=== PATIENT | female | born 1960 | race Caucasian/White ===

== ENCOUNTER → 2018-08-01 | Outpatient (CLI) | payer MEDICARE ==
--- NOTE | 2018-08-01 14:14 | Diagnostic Imaging Report ---
PROCEDURE: CT chest without contrast. TECHNIQUE: Multiple contiguous axial images were obtained through the chest without the use of intravenous contrast. Auto Exposure Controls were utilized during the CT exam to meet ALARA standards for radiation dose reduction. INDICATION: Shortness of breath. COMPARISON: None available. FINDINGS: Absence of intravenous contrast decreases sensitivity for detection of lymphadenopathy and vascular pathology. Multiple images are degraded by patient motion which diminishes detail, and interpretation was made in light of this technical confine. TRACHEA AND MAIN BRONCHI: Patent without evidence of tracheal or endobronchial lesion. LUNGS AND PLEURA: Moderate upper lobe centrilobular emphysematous change is demonstrated in both lungs. There is mild biapical pleural-parenchymal scarring. There is a 2 mm nodule in the right upper lobe posteriorly (image 40, series 3). A 4 mm pulmonary nodule is demonstrated in the anterolateral aspect of the right upper lobe (image 47, series 3). There is a 3 mm pulmonary nodule in the anterior aspect of the right lower lobe adjacent to the major fissure (image 63, series 3). There is a 3 mm nodule in the anterior aspect of the left lower lobe adjacent to the major fissure (image 65, series 3). The lungs are otherwise clear, without focal consolidation or pulmonary mass. No pleural effusion or pneumothorax. MEDIASTINUM AND CYNTHIA: Visualized thyroid gland is normal. No mediastinal or hilar lymphadenopathy. Esophagus is nondistended. HEART AND VESSELS: Heart is normal in size. Trace pericardial fluid without eduardo effusion. Atherosclerotic calcification involves the aorta and its branches, including the coronary arteries. Thoracic aorta is nonaneurysmal. DIAPHRAGM AND UPPER ABDOMEN: Calcified granuloma is demonstrated in the right hepatic dome. Visualized upper abdomen and diaphragm are otherwise unremarkable. CHEST WALL: Unremarkable. BONES: No acute osseous abnormality allowing for patient motion. Degenerative changes are noted in the spine. Partially visualized anterior cervical fusion hardware is demonstrated. Partially imaged somewhat serpiginous sclerosis in the right humeral head may reflect bone infarct versus degenerative change. IMPRESSION: Marked upper lobe predominant emphysematous changes are demonstrated in both lungs. No acute chest disease is appreciated. Multiple bilateral pulmonary nodules measuring up to 4 mm. Given emphysematous changes of the lungs, the patient is considered to be at increased risk for malignancy, therefore, optional CT may be performed in 12 months to demonstrate stability of these nodules. Recommendations are per Fleischner Society 2017 guidelines for a followup of incidental pulmonary nodules (Radiology, 2017 Sher;284(1):228-243). Dictated by: Dictated on workstation # [id number]
== END ==
LOC: RAD FS 13:15
PROVIDERS: ATTEND Nurse Practitioner
DX: J43.2 Centrilobular emphysema (principal); R91.8 Other nonspecific abnormal finding of lung field
CPT/HCPCS: 71250

== ENCOUNTER 2018-08-15 04:18 | Emergency (ER) | payer MEDICARE ==
[~2018-08-15] VITALS: Ht 160 cm; Wt 72.6 kg
--- OUTSIDE RECORDS SUMMARY | 2018-08-15 04:23 | XMS REPORT | Continuity of Care Document ---
Author Organization Unknown Address Unknown Allergies There is no data. Medications There is no data. Problems There is no data. Procedures There is no data. Results Test Result Range BNP - 08/01/18 12:10 B TYPE NATRIURETIC PEPTIDE (BNP) 29 pg/mL <100 DIFFERENTIAL, MANUAL - 08/01/18 12:10 ABSOLUTE NEUTROPHILS 2430 cells/uL [id number] ABSOLUTE MONOCYTES 486 cells/uL 200-950 ABSOLUTE EOSINOPHILS 216 cells/uL 15-500 ABSOLUTE BASOPHILS 162 cells/uL 0-200 NEUTROPHILS 45.0 % NRG LYMPHOCYTES 39.0 % NRG MONOCYTES 9.0 % NRG EOSINOPHILS 4.0 % NRG BASOPHILS 3.0 % NRG ABSOLUTE LYMPHOCYTES 2106 cells/uL [id number] PLATELET ESTIMATION ADEQUATE ADEQUATE Encounters ACCT No. Visit Date/Time Discharge Status Pt. Type Provider Facility Loc./Unit Complaint [id number] 08/14/2018 14:00:00 [facility] Outpatient [facility] [id number] 08/01/2018 11:20:00 Document Registration
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
--- NOTE | 2018-08-15 04:52 | ED Psychosocial ---
General Stated Complaint: ANXIETY Source: patient, RN notes reviewed Exam Limitations: no limitations History of Present Illness Date Seen by Provider: Aug 15, 2018 Time Seen by Provider: 04:48 Allergies and Home Medications Allergies Coded Allergies: diphenhydramine (Verified Allergy, Severe, 08/15/18) iodine (Verified Allergy, Severe, 08/15/18) aspirin (Verified Allergy, Intermediate, HEART PALPATATIONS, 08/15/18) prednisone (Verified Adverse Reaction, Severe, 08/15/18) HEART PAPATITIONS Past [id number] Hx Patient Social History Recent Foreign Travel: No Contact w/Someone Who Travel: No Physical Exam Vital Signs - First Documented 08/15/18 04:20 Temp 98.2 Pulse 104 Resp 20 B/P (MAP) 195/84 (121) Pulse Ox 98 Capillary Refill : Height, Weight, BMI Height: '" Weight: lbs. oz. kg; BMI Method: Progress/Results/Core Measures Results/Orders My Orders Orders - ZAK ALAS DO Metoprolol Succinate (Xl) Tab (Toprol Xl (08/15/18 05:15) Lisinopril Tablet (Zestril Tablet) (08/15/18 05:15) Lorazepam Injection (Ativan Injection) (08/15/18 05:15) Lisinopril Tablet (Zestril Tablet) (08/15/18 05:18) Clonidine Tablet (Catapres Tablet) (08/15/18 05:30) Clonidine Tablet (Catapres Tablet) (08/15/18 05:28) Medications Given in ED Current Medications Medications Dose Ordered Sig/Twin Route Start Time Stop Time Status Last Admin Dose Admin Clonidine HCl 0.2 mg ONCE ONCE PO 08/15/18 05:30 08/15/18 05:31 UNV 08/15/18 05:33 0.2 MG Lisinopril 40 mg ONCE ONCE PO 08/15/18 05:15 08/15/18 05:16 DC 08/15/18 05:28 40 MG Lorazepam 1 mg ONCE ONCE IVP 08/15/18 05:15 08/15/18 05:16 DC 08/15/18 05:27 1 MG Metoprolol Succinate 25 mg ONCE ONCE PO 08/15/18 05:15 08/15/18 05:16 DC 6/27/19 05:30 25 MG Vital Signs/I&O 08/15/18 04:20 Temp 98.2 Pulse 104 Resp 20 B/P (MAP) 195/84 (121) Pulse Ox 98 Departure Impression Primary Impression: Non compliance w medication regimen Additional Impressions: Anxiety Hypertension COPD (chronic obstructive pulmonary disease) Condition: Stable Departure-Patient Inst. Referrals: [facility] (PCP) Primary Care Physician LEO ARELLANO (Family) Primary Care Physician Patient Instructions: Anxiety, Adult (DC) Add. Discharge Instructions: NEED TO GET TO [facility] TODAY AND [employer]IST[employer] YOUR PRESCRIPTIONS FOR LISINOPRIL AND START 6/28 AM, CATAPRES PATCH AND START TODAY (IT IS GOOD FOR A WEEK), METOPROLOL 25 mg AND START TONIGHT, AND LORAZEPAM (TAKE DIRECTED). NEED TO GET YOUR CARE THRU ONE HOSPITAL AND ONE PROVIDER AND STOP BOUNCING AROUND. ZAK ALAS DO Aug 15, 2018 04:52
[2018-08-15] MEDS ORDERED: cloNIDine 0.3 MG PATCH (CATAPRES TTS) TDSY TD ONE (05:15)
[2018-08-15] MEDS ORDERED: LORazepam INJ 2 MG/ML (ATIVAN) VIAL IVP ONE (05:15)
[2018-08-15] MEDS ORDERED: lisINopril 20 MG (PRINIVIL) TABLET PO ONE (05:15)
[2018-08-15] MEDS ORDERED: lisINopril 10 MG (PRINIVIL) TABLET ONE (05:18)
[2018-08-15] MEDS ORDERED: cloNIDine 0.1 MG (CATAPRES) TAB ONE (05:28)
[2018-08-15] MEDS ORDERED: cloNIDine 0.2 MG (CATAPRES) TAB PO ONE (05:30)
--- NOTE | 2018-08-15 05:40 | NUR ---
over ride in omnicel pulled by this RN lisinopril 40 mg ordered-pulled four 10 mg tabs for administration, however eMAR only showed 1 tablet pulled. same happened on the clonidine tab 0.1mg two tablets pulled to make order of 0.2mg to be administered however eMAR only shows 1 tablet 0.1mg pulled.
[2018-08-15 06:00] VITALS: BP 192/87
== END 2018-08-15 06:00 | disposition home or self-care (01) ==
LOC: EDUNIT# 04:18 → ER FS 04:19
DX: F41.9 Anxiety disorder, unspecified (principal); J44.9 Chronic obstructive pulmonary disease, unspecified; I10 Essential (primary) hypertension; Z91.14 Patient's other noncompliance with medication regimen; Z88.6 Allergy status to analgesic agent; Z88.8 Allergy status to other drugs, medicaments and biological substances; Z91.041 Radiographic dye allergy status
CPT/HCPCS: 96374; 99284